=== PATIENT | female | born 1945 | race Asian ===

== ENCOUNTER 2018-11-13 20:44 | Emergency (ER) | payer OTHER ==
[~2018-11-13] VITALS: Wt 70.6 kg
[~2018-11-13 20:44] MED LIST: AMLO5TAB4 PO; ASPI-535 PO; CALC500T PO; LOSA1TAB28 PO; OMEG500C PO; ONDA4TAB14 PO; [UNRECOGNIZED DRUG - CODE] PO
--- NOTE | 2018-11-13 21:35 | ERD ---
ER Documentation Chief Complaint Chief Complaint EPIOSTAXIS X'S 3 HOURS HPI The patient is a 73-year-old female, presenting to the ER because of bilateral nostril bleeding began around 8:30 PM intermittently, stop with compression. She denies similar symptoms previously, she only take aspirin 81 mg daily however she has stopped it a week ago. She is not currently having any nasal bleeding at all. She complains that she spit out some blood-tinged mucus when she had nasal bleeding. She denies syncope, near syncope, neck pain, chest pain, dyspnea. She does not smoke nor drink Past medical history: Hypertension ROS All systems reviewed and are negative except as per history of present illness. Medications Home Meds Active Scripts Ondansetron (Ondansetron Odt) 4 Mg Tab.rapdis, 4 MG PO Q6H PRN for NAUSEA AND/OR VOMITING, #30 TAB Prov:LATRICE ADAMS MD 06/15/16 Reported Medications Amlodipine Besylate* (Norvasc*) 5 Mg Tablet, 5 MG PO DAILY, TAB 06/15/16 Calcium Carbonate* (Os-Braulio 500*) 1 Tab Tablet, 1 TAB PO DAILY, TAB 03/30/14 Losartan-Hydrochlorothiazide (Losartan-HCTZ) 100-12.5 Mg Tab, 1 TAB PO DAILY, TAB 03/30/14 Fluoride Ion/Multivitamins (Multi Psmp-Yags-Fg 0.25 Mg) 0.25 Mg Tab.chew, 1 TAB PO DAILY 03/11/12 [place]-3 Fatty Acids (Fish Oil) 500 Mg Capsule.dr, 1 CAP PO DAILY 03/11/12 Aspirin Ec (Aspir 81) 81 Mg Tablet.dr, 1 TAB PO DAILY 03/11/12 Allergies Allergies: Coded Allergies: No Known Allergy (Unverified , 06/15/16) PMhx/Soc History of Surgery: No Anesthesia Reaction: No Hx Neurological Disorder: No Hx Respiratory Disorders: No Hx Cardiac Disorders: Yes (HTN ) Hx Psychiatric Problems: No Hx Miscellaneous Medical Probl: No Hx Alcohol Use: No Hx Substance Use: No Hx Tobacco Use: No Smoking Status: Never smoker Physical Exam Vitals Vital Signs Date Temp Pulse Resp B/P (MAP) Pulse Ox O2 O2 Flow FiO2 Time Delivery Rate 11/13/18 78 22 152/86 98 Room Air 21:57 (108) 11/13/18 98.3 96 18 217/111 97 20:46 (146) Physical Exam Const: No acute distress. Head: Atraumatic. Eyes: Normal Conjunctiva. ENT: Normal External Ears, Nose and Mouth. Bilateral nostril clear, no oropharyngeal bleeding Neck: Full range of motion. No meningismus. Resp: Clear to auscultation bilaterally. Cardio: Regular rate and rhythm. Abd: Soft, non distended, normal bowel sounds, non tender. Skin: No petechiae or rashes. Back: No midline or flank tenderness. Ext: No cyanosis, or edema. Neur: Awake and alert. No focal deficit Psych: Normal Mood and Affect. Procedures/MDM MEDICAL MAKING DECISION: The patient is a 73-year-old female, presenting with acute spontaneous epistaxis, most likely anterior. She does not have any current bleeding right now and does not require any nasal packing. She is stable for outpatient follow-up. Her blood pressure improved without intervention The differential diagnoses considered include but are not limited to anterior epistaxis, posterior epistaxis, nasal polyps Departure Diagnosis: Primary Impression: Acute anterior epistaxis Condition: Good Comments I discussed the findings with the patient. I advised the patient to follow-up with the primary physician in about 2-3 days, sooner if needed and return if any concern. Disclaimer: Inadvertent spelling and grammatical errors are likely due to EHR/dictation software use and do not reflect on the overall quality of patient care. Also, please note that the electronic time recorded on this note does not necessarily reflect the actual time of the patient encounter. IVONE JOAY MD November 13, 2018 21:35
[2018-11-13 21:57] VITALS: BP 152/86; PULSE 78; RESP 22
== END 2018-11-13 22:06 | disposition home or self-care (01) ==
LOC: E/R 20:44
DX: R04.0 Epistaxis (principal); I10 Essential (primary) hypertension; Z79.82 Long term (current) use of aspirin
CPT/HCPCS: 99283

== ENCOUNTER 2018-11-14 05:02 | Emergency (ER) | payer OTHER ==
[~2018-11-14] VITALS: Wt 69.4 kg
[2018-11-14 06:25] VITALS: BP 148/80; PULSE 78; RESP 16
--- NOTE | 2018-11-14 07:58 | ERD ---
ER Documentation Chief Complaint Chief Complaint EPISTAXIS; SEEN LAST NIGHT FOR SAME HPI Patient is a 73-year-old female with hypertension who presents with a nosebleed. Nosebleed started at 3:45 AM. It was coming out of both nares. She was seen yesterday for the same. She feels like she was having bleeding in her throat as well. She takes an 81 mg aspirin but no other blood thinners. She denies trauma. Upon review of old medical records this is the patient's second visit to the ER since 2011. Her primary doctor is Dr. Husain. ROS All systems reviewed and are negative except as per history of present illness. Medications Home Meds Active Scripts Ondansetron (Ondansetron Odt) 4 Mg Tab.rapdis, 4 MG PO Q6H PRN for NAUSEA AND/OR VOMITING, #30 TAB Prov:LATRICE ADAMS MD 06/15/16 Reported Medications Amlodipine Besylate* (Norvasc*) 5 Mg Tablet, 5 MG PO DAILY, TAB 06/15/16 Calcium Carbonate* (Os-Braulio 500*) 1 Tab Tablet, 1 TAB PO DAILY, TAB 03/30/14 Losartan-Hydrochlorothiazide (Losartan-HCTZ) 100-12.5 Mg Tab, 1 TAB PO DAILY, TAB 03/30/14 Fluoride Ion/Multivitamins (Multi Wghu-Kcwf-Ve 0.25 Mg) 0.25 Mg Tab.chew, 1 TAB PO DAILY 03/11/12 [place]-3 Fatty Acids (Fish Oil) 500 Mg Capsule.dr, 1 CAP PO DAILY 03/11/12 Aspirin Ec (Aspir 81) 81 Mg Tablet.dr, 1 TAB PO DAILY 03/11/12 Allergies Allergies: Coded Allergies: No Known Allergy (Unverified , 06/15/16) PMhx/Soc Medical and Surgical Hx: pt denies Surgical Hx History of Surgery: No Anesthesia Reaction: No Hx Neurological Disorder: No Hx Respiratory Disorders: No Hx Cardiac Disorders: Yes (HTN ) Hx Psychiatric Problems: No Hx Miscellaneous Medical Probl: No Hx Alcohol Use: No Hx Substance Use: No Hx Tobacco Use: No Smoking Status: Never smoker FmHx Family History: No diabetes Physical Exam Vitals Vital Signs Date Temp Pulse Resp B/P (MAP) Pulse Ox O2 O2 Flow FiO2 Time Delivery Rate 11/14/18 78 16 148/80 95 Room Air 06:25 (102) 11/14/18 87 16 166/90 96 Room Air 05:34 (115) 11/14/18 98.8 119 18 176/101 96 05:04 (126) Physical Exam Const: No acute distress Head: Atraumatic Eyes: Normal conjunctival ENT: Dried blood in the nares with no blood in the posterior oropharynx Neck: Full range of motion. No meningismus. Resp: Clear to auscultation bilaterally Cardio: Regular rate and rhythm, no murmurs Abd: Soft, non tender, non distended. Normal bowel sounds Skin: No petechiae or rashes Back: No midline or flank tenderness Ext: No cyanosis, or edema Neur: Awake and alert Psych: Normal Mood and Affect Procedures/MDM Patient is a 73-year-old female who presents with epistaxis. Her nosebleed is stopped at this time and she is only on a baby aspirin. She is otherwise well- appearing. I talked with her about the possibility of placing a nasal tampon but at this point I believe the risk would outweigh the benefits given the fact that she is no longer bleeding. She can return for any worsening symptoms. She should follow-up with her primary doctor within the next 24 to 48 hours. Departure Diagnosis: Primary Impression: Epistaxis Condition: Fair Patient Instructions: Epistaxis (Adult) Referrals: Dr. Husain Additional Instructions: Call your primary care doctor TOMORROW for an appointment during the next 1-2 days.See the doctor sooner or return here if your condition worsens before your appointment time. LATRICE ADAMS MD November 14, 2018 07:58
== END 2018-11-14 06:26 | disposition home or self-care (01) ==
LOC: E/R 05:02
DX: R04.0 Epistaxis (principal); I10 Essential (primary) hypertension; Z79.82 Long term (current) use of aspirin
CPT/HCPCS: 99282